=== PATIENT | male | born 1995 | race Hispanic/Latino ===

== ENCOUNTER 2025-04-22 10:21 | Emergency (ER) | payer BC ==
[~2025-04-22] VITALS: Ht 172.7 cm; Wt 83.9 kg
[2025-04-22 10:25] VITALS: PULSE 75; RESP 18; TEMP 98; O2SAT 99
[2025-04-22] MEDS ORDERED: NAPROXEN375 MG PO (10:45)
[2025-04-22] MEDS: IBUPROFEN 600 MG TAB PO STA (11:19)
[2025-04-22] MEDS: TRAMADOL HCL 50 MG TAB PO ONE (11:20)
== END 2025-04-22 12:04 | disposition home or self-care (01) ==
LOC: ER 10:28
DX: S93.491A Sprain of other ligament of right ankle, initial encounter (principal); Y93.67 Activity, basketball; Y92.89 Other specified places as the place of occurrence of the external cause
CPT/HCPCS: 99283